=== PATIENT | female | born 1950 | race Caucasian/White ===

== ENCOUNTER 2017-09-27 11:08 | Inpatient (IN) | payer MEDICARE, MEDICAID ==
[~2017-09-27] VITALS: Ht 157.5 cm; Wt 120.7 kg
[~2017-09-27 11:08] MED LIST: ATOR10TA PO; CARV3.1212 PO; CLOP75TA52 PO; DOXE75CA PO; DOXY100C15 PO; GUAI400T66 PO; HYDR28.423 TP; LAMO200T2 PO; LEVO750T26 PO; LISI-167 PO; LORA1TAB PO; METF500T4 PO; NYST60PO TP; OLAN7.5T3 PO; OXYC5TAB3 PO; PRED20TA PO; TIOT18CA INH
[2017-09-27] MEDS ORDERED: SODIUM CHLORIDE FLUSH 10ML SYR IVF ONE (11:30)
[2017-09-27 13:07] LABS: BASOPHILS # (AUTO) 0.02 x10^3/uL (0-0.1); BASOPHILS % (AUTO) 0 % (0-1); EOSINOPHILS # (AUTO) 0.36 x10^3/uL (0-0.4); EOSINOPHILS % (AUTO) 4 % (1-7); LYMPHOCYTES # (AUTO) 1.83 x10^3/uL (1-3.4); LYMPHOCYTES % (AUTO) 18 % (22-44); MD NO; MEAN CORPUSCULAR HEMOGLOBIN 30.3 pg (27.0-34.8); MEAN CORPUSCULAR HGB CONC 33.1 g/dL (32.4-35.8); MEAN CORPUSCULAR VOLUME 91.5 fL (80-100); MEAN PLATELET VOLUME 7.9 fL (7.4-10.4); MONOCYTES # (AUTO) 0.67 x10^3/uL (0.2-0.8); MONOCYTES % (AUTO) 6 % (2-9); NEUTROPHILS # (AUTO) 7.52 x10^3/uL (1.8-6.8); NEUTROPHILS % (AUTO) 72 % (42-75); PLATELET COUNT 340 x10^3/uL (130-400); RED BLOOD COUNT 4.85 x10^6/uL (3.82-5.3); RED CELL DISTRIBUTION WIDTH 13.9 % (9.6-15.2)
[2017-09-27 13:14] LABS: ALBUMIN 3.4 g/dL (3.4-5.0); ANION GAP 10 mmol/L (5-15); CALCIUM 9.3 mg/dL (8.5-10.1); CHLORIDE 102 mmol/L (98-107)
[2017-09-27 13:20] LABS: ALANINE AMINOTRANSFERASE 24 U/L (12-78); ALKALINE PHOSPHATASE 121 U/L (45-117); BILIRUBIN,TOTAL 0.3 mg/dL (0.2-1.0); CREATININE 0.87 mg/dL (0.55-1.02); TOTAL PROTEIN 7.6 g/dL (6.4-8.2); TROPONIN I < 0.015 ng/mL (0.000-0.045)
[2017-09-27 13:21] LABS: INTERNATIONAL NORMALIZED RATIO 0.96 (0.93-1.1)
[2017-09-27] MEDS ORDERED: METF1000 PO (13:38)
[2017-09-27] MEDS ORDERED: HYDR28.423 TP (13:38)
[2017-09-27] MEDS ORDERED: OLAN10TA9 PO (13:38)
[2017-09-27] MEDS ORDERED: SODIUM CHLORIDE FLUSH 10ML SYR IVF PRN (14:00)
[2017-09-27] MEDS ORDERED: SODIUM CHLORIDE 0.9% 1,000 ML IV SCH (14:24)
[2017-09-27] MEDS ORDERED: hydrALAzine 20 MG/ML, 1ML IV PRN (14:30)
[2017-09-27] MEDS ORDERED: ONDANSETRON 2MG/ML, 2ML IVPush PRN (14:30)
[2017-09-27] MEDS ORDERED: HYDROcodone/APAP 5/325 TABLET PO PRN (14:30)
[2017-09-27] MEDS ORDERED: DOCUSATE 100 MG CAPSULE PO PRN (14:30)
[2017-09-27] MEDS ORDERED: ENALAPRILAT 1.25 MG/ML, 2ML IV PRN (14:30)
[2017-09-27] MEDS ORDERED: morphine SULFATE 10 MG/ML, 1ML IVPush PRN (14:30)
[2017-09-27] MEDS ORDERED: LABETALOL 5MG/ML, 20ML IVPush PRN (14:30)
[2017-09-27] MEDS ORDERED: POLYETHYLENE GLYCOL 17 GM PACKET PO PRN (14:30)
[2017-09-27] MEDS ORDERED: ACETAMINOPHEN 325 MG TABLET PO PRN (14:30)
[2017-09-27 14:56] VITALS: BP 138/70
[2017-09-27] MEDS: IPRATROPIUM 0.5 MG/2.5 ML INHA NPPB SCH ×3 (15:00→18:50)
[2017-09-27] MEDS: INSULIN ASPART 100 UNITS/ML, PEN SQ-INSULIN SCH ×2 (15:23→20:30)
[2017-09-27] MEDS: ENOXAPARIN 40 MG/0.4 ML SQ SCH (15:24)
[2017-09-27 15:55] LABS: HEMOGLOBIN A1C 7.7 % (4.2-6.3)
[2017-09-27] MEDS: NYSTATIN TOPICAL POWDER 15GM TP SCH ×2 (17:13→20:30)
[2017-09-27] MEDS: LORazepam 1MG TABLET PO SCH ×2 (17:13→20:29)
[2017-09-27] MEDS ORDERED: ECON15CR TP (17:22)
[2017-09-27] MEDS ORDERED: HALO50CR TP (17:22)
[2017-09-27] MEDS ORDERED: ALBU8.5H8 INH (17:22)
[2017-09-27] MEDS ORDERED: GUAI120S PO (17:22)
[2017-09-27 18:05] LABS: TROPONIN I < 0.015 ng/mL (0.000-0.045)
[2017-09-27] MEDS ORDERED: IPRATROPIUM 0.5 MG/2.5 ML INHA ONE (18:49)
[2017-09-27 20:22] VITALS: BP 116/66
[2017-09-27] MEDS: CARVEDILOL 3.125 MG TABLET PO SCH (20:29)
[2017-09-27] MEDS ORDERED: OLANZAPINE 10 MG TABLET PO SCH (21:00)
[2017-09-27] MEDS ORDERED: ATORVASTATIN 40 MG TABLET PO SCH (21:00)
[2017-09-27] MEDS ORDERED: DOXEPIN 25 MG CAPSULE PO SCH (21:00)
[2017-09-28] MEDS: IPRATROPIUM 0.5 MG/2.5 ML INHA NPPB SCH ×3 (01:20→15:55)
[2017-09-28 02:00] VITALS: BP 100/66
[2017-09-28 06:45] VITALS: BP 98/65
[2017-09-28] MEDS: INSULIN ASPART 100 UNITS/ML, PEN SQ-INSULIN SCH ×3 (07:00→16:00)
[2017-09-28 07:29] LABS: CHOLESTEROL, TOTAL 188 mg/dL (140-239)
[2017-09-28 07:32] LABS: CHOL/HDL RATIO 4.7; HDL CHOL % 21 % (28-40); HDL CHOLESTEROL (DIRECT) 40 mg/dL (40-60); LDL CHOLESTEROL,CALCULATED 96 mg/dL (54-169); LDL/HDL RATIO 2.4 (0.5-3.0); TRIGLYCERIDES 258 mg/dL (50-200); TROPONIN I < 0.015 ng/mL (0.000-0.045); VLDL CHOLESTEROL 52 mg/dL (0-25)
[2017-09-28 08:15] VITALS: BP 124/76
[2017-09-28] MEDS: LORazepam 1MG TABLET PO SCH ×2 (08:26→17:14)
[2017-09-28] MEDS: CARVEDILOL 3.125 MG TABLET PO SCH (08:26)
[2017-09-28] MEDS ORDERED: REGADENOSON 0.4 MG/5 ML SYRINGE ONE (08:53)
[2017-09-28] MEDS ORDERED: LAMOTRIGINE 200 MG TABLET PO SCH (09:00)
[2017-09-28] MEDS ORDERED: LISINOPRIL 5 MG TABLET PO SCH (09:00)
[2017-09-28] MEDS ORDERED: SENNA/DOCUSATE TABLET PO SCH (09:00)
[2017-09-28] MEDS ORDERED: CLOPIDOGREL 75 MG TABLET PO SCH (09:00)
[2017-09-28] MEDS: NYSTATIN TOPICAL POWDER 15GM TP SCH ×2 (12:18→17:14)
[2017-09-28 12:55] VITALS: BP 114/74
[2017-09-28] MEDS: ENOXAPARIN 40 MG/0.4 ML SQ SCH (14:30)
[2017-09-28] MEDS ORDERED: FENO145T32 PO (14:42)
[2017-09-28] MEDS ORDERED: MINERA CRM, 60GM TP SCH (21:00)
== END 2017-09-28 18:16 | disposition home or self-care (01) | DRG 313 ==
LOC: ED 11:29 → EDIP 13:55 → 5SO 14:43
PROVIDERS: ADMIT Family Medicine; ATTEND Family Medicine
DX: R07.89 Other chest pain (principal); I25.110 Atherosclerotic heart disease of native coronary artery with unstable angina pectoris; J96.10 Chronic respiratory failure, unspecified whether with hypoxia or hypercapnia; E11.65 Type 2 diabetes mellitus with hyperglycemia; E66.01 Morbid (severe) obesity due to excess calories; Z99.81 Dependence on supplemental oxygen; Z68.42 Body mass index [BMI] 45.0-49.9, adult; J44.9 Chronic obstructive pulmonary disease, unspecified; E78.1 Pure hyperglyceridemia; E78.5 Hyperlipidemia, unspecified; F31.9 Bipolar disorder, unspecified; F41.1 Generalized anxiety disorder; I10 Essential (primary) hypertension; I25.2 Old myocardial infarction; Z80.8 Family history of malignant neoplasm of other organs or systems; Z82.49 Family history of ischemic heart disease and other diseases of the circulatory system; Z86.73 Personal history of transient ischemic attack (TIA), and cerebral infarction without residual deficits; Z95.5 Presence of coronary angioplasty implant and graft; Z90.49 Acquired absence of other specified parts of digestive tract; Z88.1 Allergy status to other antibiotic agents; Z88.0 Allergy status to penicillin; Z88.8 Allergy status to other drugs, medicaments and biological substances
CPT/HCPCS: 36415; 71045; 78452; 80053; 80061; 82947; 82962; 83036; 84484; 85025; 85610; 85730; 93005; 93017; 94640; 99285; J1650; J1815; J2785; J7644; A9502; C9898; J7030

== ENCOUNTER 2018-07-25 19:19 | Observation (INO) | payer MEDICARE, MEDICAID ==
[~2018-07-25] VITALS: Ht 157.5 cm; Wt 119.3 kg
[~2018-07-25 19:19] MED LIST changes: +ALBU8.5H8 INH; +ECON15CR TP; +FENO145T32 PO; +GUAI120S PO; +HALO50CR TP; +METF1000 PO; +METF500T17 PO; -METF500T4 PO; +OLAN10TA9 PO
[2018-07-25] MEDS ORDERED: SODIUM CHLORIDE FLUSH 10ML SYR IVF ONE (19:30)
[2018-07-25 19:56] LABS: ALBUMIN 3.1 g/dL (3.4-5.0); ANION GAP 8 mmol/L (5-15); CALCIUM 8.9 mg/dL (8.5-10.1); CHLORIDE 101 mmol/L (98-107); INTERNATIONAL NORMALIZED RATIO 0.95 (0.93-1.1); PROTHROMBIN TIME 9.9 Seconds (9.6-11.5)
[2018-07-25 19:58] LABS: BASOPHILS # (AUTO) 0.07 x10^3/uL (0-0.1); BASOPHILS % (AUTO) 1 % (0-1); EOSINOPHILS # (AUTO) 0.49 x10^3/uL (0-0.4); EOSINOPHILS % (AUTO) 6 % (1-7); LYMPHOCYTES # (AUTO) 2.39 x10^3/uL (1-3.4); LYMPHOCYTES % (AUTO) 29 % (22-44); MD NO; MEAN CORPUSCULAR HEMOGLOBIN 30.8 pg (27.0-34.8); MEAN CORPUSCULAR HGB CONC 33.6 g/dL (32.4-35.8); MEAN CORPUSCULAR VOLUME 91.8 fL (80-100); MEAN PLATELET VOLUME 7.9 fL (7.4-10.4); MONOCYTES # (AUTO) 0.69 x10^3/uL (0.2-0.8); MONOCYTES % (AUTO) 8 % (2-9); NEUTROPHILS # (AUTO) 4.57 x10^3/uL (1.8-6.8); NEUTROPHILS % (AUTO) 56 % (42-75); PLATELET COUNT 297 x10^3/uL (130-400); RED BLOOD COUNT 4.72 x10^6/uL (3.82-5.3); RED CELL DISTRIBUTION WIDTH 13.3 % (9.6-15.2)
[2018-07-25] MEDS ORDERED: PLEASE ENTER HEIGHT AND WEIGHT MC SCH (20:00)
[2018-07-25 20:02] LABS: ALANINE AMINOTRANSFERASE 25 U/L (12-78); ALKALINE PHOSPHATASE 122 U/L (45-117); BILIRUBIN,TOTAL 0.3 mg/dL (0.2-1.0); CREATININE 1.01 mg/dL (0.55-1.02); TOTAL PROTEIN 7.4 g/dL (6.4-8.2); TROPONIN I < 0.015 ng/mL (0.000-0.045)
[2018-07-25] MEDS ORDERED: LAMO200T2 PO (21:35)
[2018-07-25] MEDS ORDERED: HALO15CR3 TD (21:35)
[2018-07-25] MEDS ORDERED: IPRA4AER INH (21:35)
[2018-07-25] MEDS ORDERED: ALBU18HF INH (21:35)
[2018-07-25] MEDS ORDERED: METF1000 PO (21:35)
[2018-07-25] MEDS ORDERED: HYDR28OI3 TD (21:35)
[2018-07-25] MEDS ORDERED: GUAIFENESIN/DM 100-10MG, 5ML UDC PO PRN (22:00)
[2018-07-25 22:15] VITALS: BP 120/74
[2018-07-25] MEDS ORDERED: DOCUSATE 100 MG CAPSULE PO PRN (22:30)
[2018-07-25] MEDS ORDERED: ONDANSETRON ODT 4 MG PO PRN (22:30)
[2018-07-25] MEDS: ALBUTEROL/IPRATROPIUM 2.5MG/0.5MG, 3 ML HHN SCH (22:30)
[2018-07-25] MEDS ORDERED: ACETAMINOPHEN 325 MG TABLET PO PRN (22:30)
[2018-07-25] MEDS ORDERED: ALBUTEROL SULFATE 2.5 MG/3 ML HHN PRN (22:30)
[2018-07-25] MEDS ORDERED: hydrALAzine 20 MG/ML, 1ML IVPush PRN (22:30)
[2018-07-25] MEDS: INSULIN LISPRO 100 UNITS/ML, PEN SQ-INSULIN SCH (23:34)
[2018-07-25] MEDS: ENOXAPARIN 40 MG/0.4 ML SQ SCH (23:34)
[2018-07-26 01:44] VITALS: BP 109/56
[2018-07-26 01:58] LABS: TROPONIN I < 0.015 ng/mL (0.000-0.045)
[2018-07-26] MEDS: ALBUTEROL/IPRATROPIUM 2.5MG/0.5MG, 3 ML HHN SCH (04:30)
[2018-07-26 05:29] LABS: TROPONIN I < 0.015 ng/mL (0.000-0.045)
[2018-07-26 07:39] VITALS: BP 106/69
[2018-07-26] MEDS: INSULIN LISPRO 100 UNITS/ML, PEN SQ-INSULIN SCH ×4 (08:53→20:37)
[2018-07-26] MEDS: LISINOPRIL 10 MG TABLET PO SCH (08:54)
[2018-07-26] MEDS: HALOBETASOL PROPIONATE HOMETD SCH ×2 (08:54→21:00)
[2018-07-26] MEDS: CLOPIDOGREL 75 MG TABLET PO SCH (08:54)
[2018-07-26] MEDS: LAMOTRIGINE 200 MG TABLET PO SCH (08:54)
[2018-07-26] MEDS ORDERED: metFORMIN 500 MG TABLET PO SCH (09:00)
[2018-07-26 12:36] LABS: HEMOGLOBIN A1C 9.9 % (4.2-6.3)
[2018-07-26 12:51] VITALS: BP 110/71
[2018-07-26 14:18] LABS: CHOL/HDL RATIO 5.2; LDL/HDL RATIO 2.3 (0.5-3.0)
[2018-07-26] MEDS: ALBUTEROL/IPRATROPIUM 2.5MG/0.5MG, 3 ML NPPB SCH ×2 (14:43→20:42)
[2018-07-26] MEDS: LORazepam 1MG TABLET PO PRN (14:55)
[2018-07-26 19:03] VITALS: BP 142/67
[2018-07-26 21:21] VITALS: BP 112/72
[2018-07-26] MEDS: ENOXAPARIN 40 MG/0.4 ML SQ SCH (21:23)
[2018-07-26] MEDS: CARVEDILOL 3.125 MG TABLET PO SCH (21:23)
[2018-07-26] MEDS: DOXEPIN 25 MG CAPSULE PO SCH (21:23)
[2018-07-26] MEDS: ATORVASTATIN 40 MG TABLET PO SCH (21:23)
[2018-07-26] MEDS: OLANZAPINE 10 MG TABLET PO SCH (21:23)
[2018-07-26] MEDS: SODIUM CHLORIDE FLUSH 10ML SYR IVF SCH (21:24)
[2018-07-27 00:18] VITALS: BP 99/65
[2018-07-27] MEDS: ALBUTEROL/IPRATROPIUM 2.5MG/0.5MG, 3 ML NPPB SCH ×4 (02:46→21:03)
[2018-07-27 06:20] LABS: CHOL/HDL RATIO 5.5; LDL/HDL RATIO 2.6 (0.5-3.0)
[2018-07-27] MEDS: HALOBETASOL PROPIONATE HOMETD SCH ×2 (07:42→20:37)
[2018-07-27] MEDS: LISINOPRIL 10 MG TABLET PO SCH (07:56)
[2018-07-27] MEDS: LAMOTRIGINE 200 MG TABLET PO SCH (07:56)
[2018-07-27] MEDS: CARVEDILOL 3.125 MG TABLET PO SCH ×2 (07:56→20:38)
[2018-07-27] MEDS: CLOPIDOGREL 75 MG TABLET PO SCH (07:56)
[2018-07-27] MEDS: SODIUM CHLORIDE FLUSH 10ML SYR IVF SCH ×2 (07:59→20:37)
[2018-07-27] MEDS: INSULIN LISPRO 100 UNITS/ML, PEN SQ-INSULIN SCH ×4 (08:01→20:51)
[2018-07-27 08:19] VITALS: BP 107/64
[2018-07-27] MEDS ORDERED: REGADENOSON 0.4 MG/5 ML SYRINGE ONE (08:29)
[2018-07-27] MEDS: LORazepam 1MG TABLET PO PRN ×2 (11:38→19:12)
[2018-07-27 14:00] VITALS: BP 142/73
[2018-07-27 18:45] VITALS: BP 137/83
[2018-07-27 20:35] VITALS: BP 108/70
[2018-07-27] MEDS: OLANZAPINE 10 MG TABLET PO SCH (20:38)
[2018-07-27] MEDS: ATORVASTATIN 40 MG TABLET PO SCH (20:38)
[2018-07-27] MEDS: DOXEPIN 25 MG CAPSULE PO SCH (20:38)
[2018-07-27] MEDS ORDERED: INSULIN GLARGINE 100 UNITS/ML, PEN SQ-INSULIN SCH (21:00)
[2018-07-27] MEDS: ENOXAPARIN 40 MG/0.4 ML SQ SCH (23:02)
[2018-07-28] MEDS: ALBUTEROL/IPRATROPIUM 2.5MG/0.5MG, 3 ML NPPB SCH ×2 (03:00→09:00)
[2018-07-28 04:00] VITALS: BP 109/69
[2018-07-28 07:30] VITALS: BP 109/70
[2018-07-28] MEDS: CARVEDILOL 3.125 MG TABLET PO SCH (07:57)
[2018-07-28] MEDS: CLOPIDOGREL 75 MG TABLET PO SCH (07:57)
[2018-07-28] MEDS: LORazepam 1MG TABLET PO PRN ×2 (07:57→12:42)
[2018-07-28] MEDS: LISINOPRIL 10 MG TABLET PO SCH (07:57)
[2018-07-28] MEDS: LAMOTRIGINE 200 MG TABLET PO SCH (07:57)
[2018-07-28] MEDS: HALOBETASOL PROPIONATE HOMETD SCH (07:58)
[2018-07-28] MEDS: SODIUM CHLORIDE FLUSH 10ML SYR IVF SCH (07:58)
[2018-07-28] MEDS: INSULIN LISPRO 100 UNITS/ML, PEN SQ-INSULIN SCH ×3 (08:20→16:42)
[2018-07-28] MEDS ORDERED: ALBUTEROL SULFATE 2.5 MG/3 ML NPPB SCH (11:00)
[2018-07-28 12:50] VITALS: BP 118/78
[2018-07-28] MEDS ORDERED: ALBUTEROL SULFATE 2.5 MG/3 ML NPPB PRN (14:00)
[2018-07-28] MEDS ORDERED: GLIM2TAB2 PO (14:31)
[2018-07-28] MEDS ORDERED: BUDESONIDE 0.5 MG/2 ML INHA INH SCH (20:00)
[2018-07-29] MEDS ORDERED: BUDESONIDE 0.5 MG/2 ML INHA INH SCH (09:00)
== END 2018-07-28 18:52 | disposition home or self-care (01) ==
LOC: ED 20:14 → INTOOBSV 21:17 → EDIP 21:17 → 5SO 22:09
PROVIDERS: ADMIT Hospitalist; ATTEND Hospitalist
DX: I25.110 Atherosclerotic heart disease of native coronary artery with unstable angina pectoris (principal); E11.65 Type 2 diabetes mellitus with hyperglycemia; E11.69 Type 2 diabetes mellitus with other specified complication; E66.01 Morbid (severe) obesity due to excess calories; E78.1 Pure hyperglyceridemia; E78.5 Hyperlipidemia, unspecified; I10 Essential (primary) hypertension; F31.9 Bipolar disorder, unspecified; I25.2 Old myocardial infarction; I87.2 Venous insufficiency (chronic) (peripheral); J44.9 Chronic obstructive pulmonary disease, unspecified; L40.9 Psoriasis, unspecified; J96.20 Acute and chronic respiratory failure, unspecified whether with hypoxia or hypercapnia; Z80.8 Family history of malignant neoplasm of other organs or systems; Z82.3 Family history of stroke; Z86.73 Personal history of transient ischemic attack (TIA), and cerebral infarction without residual deficits; Z87.891 Personal history of nicotine dependence; Z88.6 Allergy status to analgesic agent; Z95.5 Presence of coronary angioplasty implant and graft; Z99.81 Dependence on supplemental oxygen; Z88.8 Allergy status to other drugs, medicaments and biological substances; Z23 Encounter for immunization
CPT/HCPCS: 36415; 71045; 78452; 80053; 80061; 82962; 83036; 83880; 84484; 85025; 85610; 85730; 90471; 90656; 93005; 93017; 93306; 93970; 94640; 96372; 99285; A9502; C9898; G0378; J1650; J1815; J2785; J7620

== ENCOUNTER 2019-02-02 18:20 | Inpatient (IN) | payer MEDICARE, MEDICAID ==
[~2019-02-02] VITALS: Ht 157.5 cm; Wt 127.0 kg
[~2019-02-02 18:20] MED LIST changes: +ALBU18HF INH; +GLIM2TAB2 PO; +HALO15CR3 TD; +HYDR28OI3 TD; +IPRA4AER INH
--- NOTE | 2019-02-02 18:41 | NUR ---
BIB BY [facility] FOR SOB/SUBSTERANAL CHEST PAIN X 2 DAYS. HX OF "SILENT IL" PAIN UNRELIEVED BY NITRO X2 TEMP OF 103, HR 95 ALLERGY TO ASA EKG OBTAINED AT 1830, FSBS 144 PLACED ON ANIMAL CARE ATTENDANT AND PIV OBTAINED
[2019-02-02] MEDS ORDERED: ACETAMINOPHEN 500 MG TABLET ONE (18:53)
[2019-02-02] MEDS ORDERED: ACETAMINOPHEN 500 MG TABLET PO ONE (19:00)
--- NOTE | 2019-02-02 19:01 | NUR ---
RIGHT AC 18 PIV STARTED W/ US-LABS INCLUDING LACTATE/CULTURE OBTAINED LAB AT BEDSIDE OBTAINING 2ND SET OF CULTURES MEDICATED W/ TYLENOL PER [facility] FOR FEVER VITALS UNCHANGED ON CONSTRUCTION PERSON-WILL CONTINUE TO CLOSELY MONITOR
--- NOTE | 2019-02-02 19:15 | NUR ---
WITH ASSESSMENT NOTED LEFT LEFT SWELLING-CALF TENDER TO TOUCH-PROVIDER AWARE RASH NOTED BENEATH BILATERAL BREAST-PATIENT TREATING AT HOME W/ SELENA BRAMBILA
[2019-02-02 19:18] LABS: MEAN CORPUSCULAR HEMOGLOBIN 30.4 pg (27.0-34.8); MEAN CORPUSCULAR HGB CONC 32.6 g/dL (32.4-35.8); MEAN CORPUSCULAR VOLUME 93.4 fL (80-100); MEAN PLATELET VOLUME 7.7 fL (7.4-10.4); PLATELET COUNT 360 x10^3/uL (130-400); RED BLOOD COUNT 4.99 x10^6/uL (3.82-5.3); RED CELL DISTRIBUTION WIDTH 14.5 % (9.6-15.2)
[2019-02-02] MEDS ORDERED: CLOT15CR5 TP (19:25)
[2019-02-02] MEDS ORDERED: NITR0.6T4 SL (19:25)
[2019-02-02 19:28] LABS: INTERNATIONAL NORMALIZED RATIO 0.94 (0.93-1.1); PROTHROMBIN TIME 9.9 Seconds (9.6-11.5)
[2019-02-02 19:31] LABS: ALANINE AMINOTRANSFERASE 18 U/L (12-78); ALBUMIN 3.5 g/dL (3.4-5.0); ANION GAP 7 mmol/L (5-15); CALCIUM 9.4 mg/dL (8.5-10.1); CHLORIDE 102 mmol/L (98-107); CREATININE 1.03 mg/dL (0.55-1.02)
--- NOTE | 2019-02-02 19:32 | NUR ---
PATIENT HELPED TO BEDSIDE COMMODE-VOIDED 300ML-SAMPLE SENT LARGE PATCHY RASH NOTED TO BILATERAL BACK-PATIENT REPORTS HX OF PSORIASIS
[2019-02-02 19:36] LABS: ALKALINE PHOSPHATASE 133 U/L (45-117); BILIRUBIN,TOTAL 0.3 mg/dL (0.2-1.0); TOTAL PROTEIN 8.3 g/dL (6.4-8.2); TROPONIN I < 0.015 ng/mL (0.000-0.045)
[2019-02-02 19:40] LABS: MICROSCOPIC AUTO
[2019-02-02 19:43] LABS: CULTURE INDICATED? YES
--- NOTE | 2019-02-02 19:57 | NUR ---
PHARMACY CALLED- TO HAVE ABX SENT SOON VERIFIED
[2019-02-02] MEDS ORDERED: AZTREONAM 2 GM in SODIUM CHLORIDE 0.9% 100 ML IVPB ONE (20:00)
[2019-02-02] MEDS ORDERED: ALBUTEROL/IPRATROPIUM 2.5MG/0.5MG, 3 ML NPPB ONE (20:00)
[2019-02-02] MEDS ORDERED: VANCOMYCIN PER PHARMACY MC ONE (20:00)
[2019-02-02] MEDS ORDERED: VANCOMYCIN 2,000 MG in SODIUM CHLORIDE 0.9% 500 ML IV ONE (20:00)
[2019-02-02 20:01] LABS: BASOPHILS # (AUTO) 0.02 x10^3/uL (0-0.1); BASOPHILS % (AUTO) 0 % (0-1); EOSINOPHILS # (AUTO) 0.35 x10^3/uL (0-0.4); EOSINOPHILS % (AUTO) 2 % (1-7); LYMPHOCYTES # (AUTO) 0.86 x10^3/uL (1-3.4); LYMPHOCYTES % (AUTO) 5 % (22-44); MONOCYTES # (AUTO) 0.53 x10^3/uL (0.2-0.8); MONOCYTES % (AUTO) 3 % (2-9); NEUTROPHILS # (AUTO) 15.83 x10^3/uL (1.8-6.8); NEUTROPHILS % (AUTO) 90 % (42-75)
[2019-02-02 20:02] LABS: MD SCAN
[2019-02-02] MEDS ORDERED: ALBUTEROL/IPRATROPIUM 2.5MG/0.5MG, 3 ML ONE (20:04)
--- NOTE | 2019-02-02 20:21 | NUR ---
ABX INITIATED PER [facility] TEMP TO 99.7 RT TO BEDSIDE- PATIENT REPORT NEB TREATMENT "HELPED ALOT", NO W/ NOTICEABLE DECREASE IN WOB/ANXIETY CLARIFIED PERMISSION FOR PO FLUIDS/IF IV FLUIDS NECCESSARY W/ PROVIDER
--- NOTE | 2019-02-02 20:26 | NUR ---
GIVEN JUICE/STRING CHEESE AFTER CLARIFICATION W/ PROVIDER NO IV AT THIS TIME PER PROVIDER
--- NOTE | 2019-02-02 20:36 | NUR ---
TO CT SCAN AZTREONAM COMPLETE-NO REACTION NOTED TOLERATED JUICE/CRACKERS/STRING CHEESE VITALS REMAIN UNCHANGED
--- NOTE | 2019-02-02 21:11 | NUR ---
VANCOMYCIN STARTED AFTER CLARIFICATION W/ PHARMACY NO INTERACTION W/ POSTED ALLERGIES. PATIENT PROVIDED W/ MEAL TRAY. VITALS REMAIN UNCHANGED. HELPED UP TO COMMODE TO VOID-350ML. UPDATED ON POC. CALL MATA IN HAND/SIDE RAILS UP.
--- NOTE | 2019-02-02 21:18 | NUR ---
HOSPITAL BED ORDERED FOR PATIENT
--- NOTE | 2019-02-02 21:25 | NUR ---
REPORT TO SAMANTHA TOBIN
--- NOTE | 2019-02-02 21:25 | NUR ---
received report from MAHAD Marie.
[2019-02-02] MEDS ORDERED: GLUCAGON 1 MG IM PRN (22:00)
[2019-02-02] MEDS ORDERED: LABETALOL 5MG/ML, 20ML IVPush PRN (22:00)
[2019-02-02] MEDS ORDERED: ONDANSETRON 2MG/ML, 2ML IVPush PRN (22:00)
[2019-02-02] MEDS ORDERED: CEFTRIAXONE 1,000 MG in SODIUM CHLORIDE 0.9% 50 ML IVPB SCH (22:00)
[2019-02-02] MEDS ORDERED: morphine SULFATE 10 MG/ML, 1ML IVPush PRN (22:00)
[2019-02-02] MEDS ORDERED: POLYETHYLENE GLYCOL 17 GM PACKET PO PRN (22:00)
[2019-02-02] MEDS ORDERED: NITROGLYCERIN 0.4 MG BOTTLE (25 TABS) SL PRN (22:00)
[2019-02-02] MEDS ORDERED: DEXTROSE 4 GM TAB.CHEW PO PRN (22:00)
[2019-02-02] MEDS ORDERED: DEXTROSE 50%, 50ML SYRINGE IVPush PRN (22:00)
[2019-02-02] MEDS ORDERED: DOXYCYCLINE 100 MG in DEXTROSE 5% 250 ML IV SCH (22:00)
[2019-02-02] MEDS ORDERED: ENALAPRILAT 1.25 MG/ML, 2ML IVPush PRN (22:00)
[2019-02-02] MEDS ORDERED: ACETAMINOPHEN 325 MG TABLET PO PRN (22:00)
--- NOTE | 2019-02-02 22:00 | NUR ---
patient assisted to use bedside commode. able to ambulate and transfer by herself.
[2019-02-02 22:27] VITALS: BP 129/64
[2019-02-02] MEDS: ENOXAPARIN 40 MG/0.4 ML SQ SCH (22:51)
[2019-02-02] MEDS ORDERED: ALBUTEROL/IPRATROPIUM 2.5MG/0.5MG, 3 ML NPPB PRN (23:30)
[2019-02-03] MEDS ORDERED: LORazepam 0.5MG TABLET PO ONE (01:00)
[2019-02-03 02:02] LABS: TROPONIN I < 0.015 ng/mL (0.000-0.045)
[2019-02-03 02:07] LABS: THYROID STIMULATING HORMONE 0.622 mIU/L (0.358-3.740)
[2019-02-03 02:43] VITALS: BP 104/66
[2019-02-03] MEDS ORDERED: OMNIPAQUE 350 MG/ML, 100ML BOTTLE ONE (03:12)
[2019-02-03] MEDS: INSULIN LISPRO 100 UNITS/ML, PEN SQ-INSULIN SCH ×4 (07:00→21:25)
[2019-02-03 07:03] VITALS: BP 106/66
[2019-02-03 07:26] LABS: ANION GAP 8 mmol/L (5-15); CALCIUM 8.7 mg/dL (8.5-10.1); CHLORIDE 102 mmol/L (98-107)
[2019-02-03 07:31] LABS: MEAN CORPUSCULAR HEMOGLOBIN 29.2 pg (27.0-34.8); MEAN CORPUSCULAR HGB CONC 31.4 g/dL (32.4-35.8); MEAN CORPUSCULAR VOLUME 93.1 fL (80-100); MEAN PLATELET VOLUME 7.3 fL (7.4-10.4); PLATELET COUNT 318 x10^3/uL (130-400); RED BLOOD COUNT 4.66 x10^6/uL (3.82-5.3); RED CELL DISTRIBUTION WIDTH 14.8 % (9.6-15.2)
[2019-02-03 07:33] LABS: CHOL/HDL RATIO 3.3; CHOLESTEROL, TOTAL 146 mg/dL (140-239); CREATININE 0.96 mg/dL (0.55-1.02); HDL CHOL % 30 % (28-40); HDL CHOLESTEROL (DIRECT) 44 mg/dL (40-60); LDL CHOLESTEROL,CALCULATED 77 mg/dL (54-169); LDL/HDL RATIO 1.8 (0.5-3.0); TRIGLYCERIDES 124 mg/dL (50-200); TROPONIN I < 0.015 ng/mL (0.000-0.045); VLDL CHOLESTEROL 25 mg/dL (0-25)
[2019-02-03 08:03] LABS: MD YES
[2019-02-03 08:04] LABS: BAND#(MANUAL) 1.42 x10^3/uL; BANDS%(MANUAL) 6 % (0-7); MONOS#(MANUAL) 0.94 x10^3/uL (0.3-2.7); MONOS% (MANUAL) 4 % (2-9); SEG#(MANUAL) 21.24 x10^3/uL (1.8-6.8); SEGS% (MANUAL) 90 % (42-75)
[2019-02-03 08:05] LABS: <PLATELET ESTIMATE> ADEQUATE; <PLT MORPHOLOGY> NORMAL PLT MORPH; POLYCHROMASIA 1+
[2019-02-03] MEDS: SODIUM CHLORIDE FLUSH 10ML SYR IVF SCH ×2 (08:33→21:00)
[2019-02-03] MEDS: LORazepam 1MG TABLET PO SCH ×3 (08:33→21:24)
[2019-02-03] MEDS: LISINOPRIL 5 MG TABLET PO SCH (08:33)
[2019-02-03] MEDS: LAMOTRIGINE 200 MG TABLET PO SCH (08:33)
[2019-02-03] MEDS: NYSTATIN TOPICAL POWDER 15GM TP SCH ×3 (09:00→21:26)
[2019-02-03] MEDS ORDERED: CLOPIDOGREL 75 MG TABLET PO SCH (09:00)
[2019-02-03] MEDS ORDERED: CARVEDILOL 3.125 MG TABLET PO SCH (09:00)
[2019-02-03] MEDS: ALBUTEROL/IPRATROPIUM 2.5MG/0.5MG, 3 ML NPPB SCH ×3 (09:00→18:24)
[2019-02-03] MEDS ORDERED: CLOTRIMAZOLE CRM 1%, 15GM TP SCH (09:00)
[2019-02-03] MEDS ORDERED: VANCOMYCIN PER PHARMACY MC PRN (11:30)
[2019-02-03] MEDS ORDERED: PHARMACOKINETIC MONITORING MC PRN (11:30)
[2019-02-03] MEDS: CEFTRIAXONE PMX 2GM/50ML 50 ML IV SCH (13:19)
[2019-02-03 14:18] VITALS: BP 102/50
[2019-02-03] MEDS ORDERED: THIAMINE 100MG TABLET PO ONE (16:30)
[2019-02-03 18:42] VITALS: BP 97/64
[2019-02-03 19:00] LABS: RAPID INFLUENZA A Negative (Negative); RAPID INFLUENZA B Negative (Negative)
[2019-02-03] MEDS ORDERED: ATORVASTATIN 40 MG TABLET PO SCH (21:00)
[2019-02-03 21:12] VITALS: BP 95/62
[2019-02-03] MEDS: OLANZAPINE 10 MG TABLET PO SCH (21:24)
[2019-02-03] MEDS: VANCOMYCIN 2,000 MG in SODIUM CHLORIDE 0.9% 500 ML IV SCH (21:25)
[2019-02-03] MEDS: DOXEPIN 25 MG CAPSULE PO SCH (21:25)
[2019-02-03] MEDS: ENOXAPARIN 40 MG/0.4 ML SQ SCH (22:50)
[2019-02-03 22:53] VITALS: BP 95/59
[2019-02-04 00:56] VITALS: BP 103/68
[2019-02-04 05:37] LABS: MEAN CORPUSCULAR HGB CONC 31.3 g/dL (32.4-35.8); MEAN CORPUSCULAR VOLUME 92.8 fL (80-100); MEAN PLATELET VOLUME 7.2 fL (7.4-10.4); PLATELET COUNT 262 x10^3/uL (130-400); RED BLOOD COUNT 4.42 x10^6/uL (3.82-5.3); RED CELL DISTRIBUTION WIDTH 14.8 % (9.6-15.2)
[2019-02-04 05:57] LABS: ALANINE AMINOTRANSFERASE 12 U/L (12-78); ALBUMIN 2.6 g/dL (3.4-5.0); ANION GAP 6 mmol/L (5-15); CALCIUM 8.5 mg/dL (8.5-10.1); CHLORIDE 104 mmol/L (98-107); CREATININE 0.95 mg/dL (0.55-1.02)
[2019-02-04 06:00] LABS: ALKALINE PHOSPHATASE 106 U/L (45-117); BILIRUBIN,TOTAL 0.5 mg/dL (0.2-1.0); TOTAL PROTEIN 6.9 g/dL (6.4-8.2)
[2019-02-04 06:11] LABS: BASOPHILS # (AUTO) 0.03 x10^3/uL (0-0.1); BASOPHILS % (AUTO) 0 % (0-1); EOSINOPHILS # (AUTO) 0.08 x10^3/uL (0-0.4); EOSINOPHILS % (AUTO) 1 % (1-7); LYMPHOCYTES # (AUTO) 1.32 x10^3/uL (1-3.4); LYMPHOCYTES % (AUTO) 9 % (22-44); MD SCAN; MONOCYTES # (AUTO) 0.92 x10^3/uL (0.2-0.8); MONOCYTES % (AUTO) 6 % (2-9); NEUTROPHILS % (AUTO) 84 % (42-75)
[2019-02-04 07:00] VITALS: BP 108/70
[2019-02-04] MEDS: INSULIN LISPRO 100 UNITS/ML, PEN SQ-INSULIN SCH ×4 (07:14→21:13)
[2019-02-04] MEDS: ALBUTEROL/IPRATROPIUM 2.5MG/0.5MG, 3 ML NPPB SCH ×3 (09:55→19:27)
[2019-02-04] MEDS: LORazepam 1MG TABLET PO SCH ×3 (10:47→21:11)
[2019-02-04] MEDS: CEFTRIAXONE PMX 2GM/50ML 50 ML IV SCH (10:47)
[2019-02-04] MEDS: LAMOTRIGINE 200 MG TABLET PO SCH (10:47)
[2019-02-04] MEDS: NYSTATIN TOPICAL POWDER 15GM TP SCH ×3 (10:47→21:13)
[2019-02-04] MEDS: LISINOPRIL 5 MG TABLET PO SCH (10:47)
[2019-02-04] MEDS: SODIUM CHLORIDE FLUSH 10ML SYR IVF SCH ×2 (10:48→21:12)
[2019-02-04 14:00] VITALS: BP 124/72
[2019-02-04 19:19] VITALS: BP 99/64
[2019-02-04] MEDS: DOXEPIN 25 MG CAPSULE PO SCH (21:12)
[2019-02-04] MEDS: OLANZAPINE 10 MG TABLET PO SCH (21:12)
[2019-02-04] MEDS: ENOXAPARIN 40 MG/0.4 ML SQ SCH (22:28)
[2019-02-04] MEDS: VANCOMYCIN 2,000 MG in SODIUM CHLORIDE 0.9% 500 ML IV SCH (22:28)
[2019-02-05 02:50] VITALS: BP 105/63
[2019-02-05 05:24] LABS: BASOPHILS % (AUTO) 0 % (0-1); EOSINOPHILS # (AUTO) 0.28 x10^3/uL (0-0.4); EOSINOPHILS % (AUTO) 3 % (1-7); LYMPHOCYTES # (AUTO) 1.03 x10^3/uL (1-3.4); LYMPHOCYTES % (AUTO) 9 % (22-44); MD NO; MEAN CORPUSCULAR HGB CONC 32.1 g/dL (32.4-35.8); MEAN CORPUSCULAR VOLUME 93.4 fL (80-100); MEAN PLATELET VOLUME 7.6 fL (7.4-10.4); MONOCYTES # (AUTO) 0.94 x10^3/uL (0.2-0.8); MONOCYTES % (AUTO) 8 % (2-9); NEUTROPHILS % (AUTO) 80 % (42-75); PLATELET COUNT 271 x10^3/uL (130-400); RED BLOOD COUNT 4.21 x10^6/uL (3.82-5.3); RED CELL DISTRIBUTION WIDTH 14.8 % (9.6-15.2)
[2019-02-05 05:36] LABS: CHLORIDE 104 mmol/L (98-107)
[2019-02-05 05:49] LABS: ALANINE AMINOTRANSFERASE 12 U/L (12-78); ALBUMIN 2.5 g/dL (3.4-5.0); ALKALINE PHOSPHATASE 110 U/L (45-117); ANION GAP 4 mmol/L (5-15); BILIRUBIN,TOTAL 0.3 mg/dL (0.2-1.0); CALCIUM 8.6 mg/dL (8.5-10.1); CREATININE 0.82 mg/dL (0.55-1.02); TOTAL PROTEIN 7.1 g/dL (6.4-8.2)
[2019-02-05 08:30] VITALS: BP 112/74
[2019-02-05] MEDS: INSULIN LISPRO 100 UNITS/ML, PEN SQ-INSULIN SCH ×6 (08:38→21:17)
[2019-02-05] MEDS: LAMOTRIGINE 200 MG TABLET PO SCH (08:39)
[2019-02-05] MEDS: LISINOPRIL 5 MG TABLET PO SCH (08:39)
[2019-02-05] MEDS: SODIUM CHLORIDE FLUSH 10ML SYR IVF SCH ×2 (08:39→21:16)
[2019-02-05] MEDS: LORazepam 1MG TABLET PO SCH ×3 (08:39→21:17)
[2019-02-05] MEDS: NYSTATIN TOPICAL POWDER 15GM TP SCH ×3 (09:00→21:17)
[2019-02-05] MEDS: ALBUTEROL/IPRATROPIUM 2.5MG/0.5MG, 3 ML NPPB SCH ×3 (09:25→19:22)
[2019-02-05] MEDS: CEFTRIAXONE PMX 2GM/50ML 50 ML IV SCH (10:55)
[2019-02-05 12:06] VITALS: BP 104/65
[2019-02-05 18:27] VITALS: BP 108/69
[2019-02-05] MEDS: OLANZAPINE 10 MG TABLET PO SCH (21:16)
[2019-02-05] MEDS: DOXEPIN 25 MG CAPSULE PO SCH (21:17)
[2019-02-05] MEDS: VANCOMYCIN 2,000 MG in SODIUM CHLORIDE 0.9% 500 ML IV SCH (22:02)
[2019-02-05] MEDS: ENOXAPARIN 40 MG/0.4 ML SQ SCH (22:02)
[2019-02-06 00:50] VITALS: BP 109/67
[2019-02-06 05:36] LABS: BASOPHILS # (AUTO) 0.02 x10^3/uL (0-0.1); BASOPHILS % (AUTO) 0 % (0-1); EOSINOPHILS % (AUTO) 5 % (1-7); LYMPHOCYTES # (AUTO) 1.06 x10^3/uL (1-3.4); LYMPHOCYTES % (AUTO) 10 % (22-44); MD NO; MEAN CORPUSCULAR HEMOGLOBIN 29.9 pg (27.0-34.8); MEAN CORPUSCULAR HGB CONC 31.8 g/dL (32.4-35.8); MEAN CORPUSCULAR VOLUME 94.1 fL (80-100); MEAN PLATELET VOLUME 7.5 fL (7.4-10.4); MONOCYTES # (AUTO) 0.81 x10^3/uL (0.2-0.8); MONOCYTES % (AUTO) 8 % (2-9); NEUTROPHILS # (AUTO) 7.77 x10^3/uL (1.8-6.8); NEUTROPHILS % (AUTO) 76 % (42-75); PLATELET COUNT 314 x10^3/uL (130-400); RED BLOOD COUNT 4.11 x10^6/uL (3.82-5.3); RED CELL DISTRIBUTION WIDTH 14.7 % (9.6-15.2)
[2019-02-06 05:48] LABS: CHLORIDE 106 mmol/L (98-107)
[2019-02-06 06:00] LABS: ALANINE AMINOTRANSFERASE 14 U/L (12-78); ALBUMIN 2.4 g/dL (3.4-5.0); ALKALINE PHOSPHATASE 102 U/L (45-117); ANION GAP 4 mmol/L (5-15); BILIRUBIN,TOTAL 0.5 mg/dL (0.2-1.0); CALCIUM 8.4 mg/dL (8.5-10.1); CREATININE 0.91 mg/dL (0.55-1.02); TOTAL PROTEIN 6.9 g/dL (6.4-8.2)
[2019-02-06 07:46] VITALS: BP 118/75
[2019-02-06] MEDS: ALBUTEROL/IPRATROPIUM 2.5MG/0.5MG, 3 ML NPPB SCH ×3 (09:00→20:09)
[2019-02-06] MEDS: DOXYCYCLINE 100 MG in DEXTROSE 5% 250 ML IV SCH ×2 (09:01→20:42)
[2019-02-06] MEDS: LISINOPRIL 5 MG TABLET PO SCH (09:02)
[2019-02-06] MEDS: SODIUM CHLORIDE FLUSH 10ML SYR IVF SCH ×2 (09:02→20:43)
[2019-02-06] MEDS: INSULIN LISPRO 100 UNITS/ML, PEN SQ-INSULIN SCH ×4 (09:02→20:42)
[2019-02-06] MEDS: LORazepam 1MG TABLET PO SCH ×3 (09:02→20:42)
[2019-02-06] MEDS: LAMOTRIGINE 200 MG TABLET PO SCH (09:02)
[2019-02-06] MEDS: NYSTATIN TOPICAL POWDER 15GM TP SCH ×3 (09:03→20:43)
[2019-02-06] MEDS: CEFTRIAXONE PMX 2GM/50ML 50 ML IV SCH (11:51)
[2019-02-06 13:00] VITALS: BP 132/70
[2019-02-06 19:51] VITALS: BP 110/66
[2019-02-06] MEDS: OLANZAPINE 10 MG TABLET PO SCH (20:42)
[2019-02-06] MEDS: DOXEPIN 25 MG CAPSULE PO SCH (20:43)
[2019-02-06] MEDS: ENOXAPARIN 40 MG/0.4 ML SQ SCH (22:30)
[2019-02-07 02:45] VITALS: BP 103/62
[2019-02-07 06:36] VITALS: BP 150/61
[2019-02-07] MEDS: INSULIN LISPRO 100 UNITS/ML, PEN SQ-INSULIN SCH ×2 (08:02→11:00)
[2019-02-07] MEDS: SODIUM CHLORIDE FLUSH 10ML SYR IVF SCH (08:03)
[2019-02-07] MEDS: DOXYCYCLINE 100 MG in DEXTROSE 5% 250 ML IV SCH (08:03)
[2019-02-07] MEDS: LAMOTRIGINE 200 MG TABLET PO SCH (08:03)
[2019-02-07] MEDS: LORazepam 1MG TABLET PO SCH (08:03)
[2019-02-07] MEDS: LISINOPRIL 5 MG TABLET PO SCH (08:04)
[2019-02-07] MEDS: NYSTATIN TOPICAL POWDER 15GM TP SCH (08:04)
[2019-02-07 08:58] LABS: ALANINE AMINOTRANSFERASE 15 U/L (12-78); ALBUMIN 2.6 g/dL (3.4-5.0); ANION GAP 6 mmol/L (5-15); CHLORIDE 104 mmol/L (98-107); CREATININE 1.11 mg/dL (0.55-1.02)
[2019-02-07] MEDS: ALBUTEROL/IPRATROPIUM 2.5MG/0.5MG, 3 ML NPPB SCH (09:00)
[2019-02-07 09:01] LABS: ALKALINE PHOSPHATASE 102 U/L (45-117); BILIRUBIN,TOTAL 0.3 mg/dL (0.2-1.0); TOTAL PROTEIN 7.2 g/dL (6.4-8.2)
[2019-02-07 09:17] LABS: BASOPHILS # (AUTO) 0.03 x10^3/uL (0-0.1); BASOPHILS % (AUTO) 0 % (0-1); EOSINOPHILS # (AUTO) 0.51 x10^3/uL (0-0.4); EOSINOPHILS % (AUTO) 6 % (1-7); LYMPHOCYTES # (AUTO) 1.16 x10^3/uL (1-3.4); LYMPHOCYTES % (AUTO) 15 % (22-44); MD NO; MEAN CORPUSCULAR HEMOGLOBIN 29.5 pg (27.0-34.8); MEAN CORPUSCULAR HGB CONC 31.6 g/dL (32.4-35.8); MEAN CORPUSCULAR VOLUME 93.5 fL (80-100); MEAN PLATELET VOLUME 7.2 fL (7.4-10.4); MONOCYTES # (AUTO) 0.76 x10^3/uL (0.2-0.8); MONOCYTES % (AUTO) 9 % (2-9); NEUTROPHILS # (AUTO) 5.58 x10^3/uL (1.8-6.8); NEUTROPHILS % (AUTO) 70 % (42-75); PLATELET COUNT 345 x10^3/uL (130-400); RED BLOOD COUNT 4.31 x10^6/uL (3.82-5.3); RED CELL DISTRIBUTION WIDTH 14.6 % (9.6-15.2)
[2019-02-07] MEDS: CEFTRIAXONE PMX 2GM/50ML 50 ML IV SCH (10:39)
[2019-02-07] MEDS ORDERED: DOXY100C2 PO (11:27)
[2019-02-07] MEDS ORDERED: CEFD300C37 PO (11:27)
[2019-02-07 14:13] VITALS: BP 136/70
== END 2019-02-07 17:03 | disposition home health service (06) | DRG 871 ==
LOC: ED 20:05 → EDIP 21:10 → 4EST 22:11 → DCLOUNGE 02-07 16:54
PROVIDERS: ADMIT Family Medicine; ATTEND Family Medicine
PROC: 0T9B70Z Drainage of Bladder with Drainage Device, Via Natural or Artificial Opening (ICD-10-PCS; principal; 2019-02-02)
DX: A41.9 Sepsis, unspecified organism (principal); J96.20 Acute and chronic respiratory failure, unspecified whether with hypoxia or hypercapnia; J18.9 Pneumonia, unspecified organism; Z68.43 Body mass index [BMI] 50.0-59.9, adult; L03.116 Cellulitis of left lower limb; J44.0 Chronic obstructive pulmonary disease with (acute) lower respiratory infection; I50.32 Chronic diastolic (congestive) heart failure; I25.10 Atherosclerotic heart disease of native coronary artery without angina pectoris; F31.9 Bipolar disorder, unspecified; M19.90 Unspecified osteoarthritis, unspecified site; E66.01 Morbid (severe) obesity due to excess calories; E11.9 Type 2 diabetes mellitus without complications; I11.0 Hypertensive heart disease with heart failure; E78.5 Hyperlipidemia, unspecified; Z88.0 Allergy status to penicillin; Z88.6 Allergy status to analgesic agent; Z88.1 Allergy status to other antibiotic agents; I25.2 Old myocardial infarction; Z90.49 Acquired absence of other specified parts of digestive tract; Z87.891 Personal history of nicotine dependence; Z99.81 Dependence on supplemental oxygen; Z95.5 Presence of coronary angioplasty implant and graft; I69.30 Unspecified sequelae of cerebral infarction; Z82.3 Family history of stroke; Z80.8 Family history of malignant neoplasm of other organs or systems; Z82.49 Family history of ischemic heart disease and other diseases of the circulatory system; Z79.84 Long term (current) use of oral hypoglycemic drugs; Z79.899 Other long term (current) drug therapy
CPT/HCPCS: 36415; 71045; 71275; 80048; 80053; 80061; 81001; 82962; 83036; 83605; 83735; 83880; 84100; 84145; 84443; 84484; 85025; 85610; 87040; 87086; 87400; 93005; 93306; 94640; 99285; G0378; J0696; J1650; J2405; J3370; J7060; J7620; Q9967; J1815; J2270; J7040

== ENCOUNTER 2019-02-15 12:42 | Inpatient (IN) | payer MEDICARE, MEDICAID ==
[~2019-02-15] VITALS: Ht 157.5 cm; Wt 125.2 kg
[~2019-02-15 12:42] MED LIST changes: +CEFD300C37 PO; +CLOT15CR5 TP; +DOXY100C2 PO; +NITR0.6T4 SL
--- NOTE | 2019-02-15 12:53 | NUR ---
PT RUBI LYONS FROM [facility]. PER EMS, PT WAS ADMITTED HERE LAST WEEK FOR CELLULITIS TO [facility]. PT WAS DISCHARGED WITH ABX BUT STATES IT'S NOT IMPROVING. VS PER EMS: 128/53, HR 70S, 94% ON 2L NC (BASELINE HOME O2), BS 200. HX DM, COPD. PT ARRIVES TO ED A&OX4, DENIES PAIN. MARKED SWELLING AND REDNESS TO L LOWER LEG AND L FOOT.
[2019-02-15] MEDS ORDERED: PHARMACOKINETIC CONSULTATION MC ONE ×2 (13:30→19:00)
[2019-02-15] MEDS ORDERED: VANCOMYCIN PER PHARMACY IV ONE (13:30)
[2019-02-15] MEDS ORDERED: SODIUM CHLORIDE FLUSH 10ML SYR IVF ONE (13:30)
[2019-02-15] MEDS ORDERED: VANCOMYCIN 2,200 MG in SODIUM CHLORIDE 0.9% 500 ML IV ONE (13:30)
[2019-02-15 13:31] LABS: BASOPHILS # (AUTO) 0.04 x10^3/uL (0-0.1); BASOPHILS % (AUTO) 0 % (0-1); EOSINOPHILS # (AUTO) 0.45 x10^3/uL (0-0.4); EOSINOPHILS % (AUTO) 4 % (1-7); LYMPHOCYTES # (AUTO) 1.78 x10^3/uL (1-3.4); LYMPHOCYTES % (AUTO) 18 % (22-44); MD NO; MEAN CORPUSCULAR HEMOGLOBIN 29.7 pg (27.0-34.8); MEAN CORPUSCULAR HGB CONC 31.7 g/dL (32.4-35.8); MEAN CORPUSCULAR VOLUME 93.5 fL (80-100); MEAN PLATELET VOLUME 7.4 fL (7.4-10.4); MONOCYTES # (AUTO) 0.61 x10^3/uL (0.2-0.8); MONOCYTES % (AUTO) 6 % (2-9); NEUTROPHILS # (AUTO) 7.31 x10^3/uL (1.8-6.8); NEUTROPHILS % (AUTO) 72 % (42-75); PLATELET COUNT 490 x10^3/uL (130-400); RED BLOOD COUNT 4.72 x10^6/uL (3.82-5.3); RED CELL DISTRIBUTION WIDTH 15.2 % (9.6-15.2)
[2019-02-15 13:40] LABS: INTERNATIONAL NORMALIZED RATIO 0.93 (0.93-1.1); PROTHROMBIN TIME 9.8 Seconds (9.6-11.5)
[2019-02-15 13:43] LABS: ALANINE AMINOTRANSFERASE 21 U/L (12-78); ALBUMIN 3.4 g/dL (3.4-5.0); ANION GAP 6 mmol/L (5-15); CALCIUM 9.1 mg/dL (8.5-10.1); CHLORIDE 105 mmol/L (98-107); CREATININE 1.23 mg/dL (0.55-1.02)
[2019-02-15 13:45] LABS: ALKALINE PHOSPHATASE 111 U/L (45-117); BILIRUBIN,TOTAL 0.2 mg/dL (0.2-1.0); TOTAL PROTEIN 8.3 g/dL (6.4-8.2)
[2019-02-15 15:00] LABS: CULTURE INDICATED? YES; MICROSCOPIC INDICATED
[2019-02-15] MEDS ORDERED: SODIUM CHLORIDE FLUSH 10ML SYR IVF PRN (16:00)
[2019-02-15] MEDS ORDERED: SODIUM CHLORIDE 0.9% 1,000 ML IV SCH (16:17)
[2019-02-15] MEDS ORDERED: POLYETHYLENE GLYCOL 17 GM PACKET PO PRN (16:30)
[2019-02-15] MEDS ORDERED: DOCUSATE 100 MG CAPSULE PO PRN (16:30)
[2019-02-15] MEDS ORDERED: VANCOMYCIN PER PHARMACY MC PRN (16:30)
[2019-02-15] MEDS ORDERED: ENOXAPARIN 40 MG/0.4 ML SQ SCH (16:30)
[2019-02-15] MEDS ORDERED: ALBUTEROL SULFATE 2.5 MG/3 ML NPPB PRN (16:30)
[2019-02-15] MEDS ORDERED: ONDANSETRON 2MG/ML, 2ML IVPush PRN (16:30)
[2019-02-15] MEDS ORDERED: BISACODYL 10 MG SUPP PR PRN (16:30)
--- NOTE | 2019-02-15 16:53 | NUR ---
ADMITTING MD WAS IN TO SEE PT. PT COMFORTABLE, UNDERSTANDS POC, SNACK PROVIDED.
[2019-02-15 18:00] VITALS: BP 133/78
[2019-02-15] MEDS ORDERED: PHARMACOKINETIC MONITORING MC PRN (19:00)
[2019-02-15 19:10] VITALS: BP 103/68
[2019-02-15] MEDS ORDERED: TEMPLATE NON-FORMULARY MED. (Ipratropium/Albuterol Sulfate (Combivent Respimat Inhal Spray INH SCH (21:00)
[2019-02-15] MEDS: OLANZAPINE 10 MG TABLET PO SCH (22:26)
[2019-02-15] MEDS: LORazepam 1MG TABLET PO SCH (22:27)
[2019-02-15] MEDS: HEPARIN 5,000 UNITS/ML, 1ML SQ SCH (22:27)
[2019-02-15] MEDS: CARVEDILOL 3.125 MG TABLET PO SCH (22:27)
[2019-02-15] MEDS: CEFTRIAXONE PMX 2GM/50ML 50 ML IV SCH (22:27)
[2019-02-15] MEDS: ATORVASTATIN 40 MG TABLET PO SCH (22:27)
[2019-02-15] MEDS: DOXEPIN 25 MG CAPSULE PO SCH (22:37)
[2019-02-16 01:08] VITALS: BP 98/63
[2019-02-16 06:40] VITALS: BP 102/64
[2019-02-16] MEDS: HEPARIN 5,000 UNITS/ML, 1ML SQ SCH ×3 (07:16→23:05)
[2019-02-16 08:07] LABS: ANION GAP 9 mmol/L (5-15); CALCIUM 8.3 mg/dL (8.5-10.1); CHLORIDE 109 mmol/L (98-107); CREATININE 1.03 mg/dL (0.55-1.02)
[2019-02-16] MEDS: LORazepam 1MG TABLET PO SCH ×3 (08:54→20:28)
[2019-02-16] MEDS: CARVEDILOL 3.125 MG TABLET PO SCH ×2 (08:54→20:29)
[2019-02-16] MEDS: LISINOPRIL 10 MG TABLET PO SCH (08:54)
[2019-02-16] MEDS: LAMOTRIGINE 200 MG TABLET PO SCH (08:55)
[2019-02-16] MEDS: CLOPIDOGREL 75 MG TABLET PO SCH (08:55)
[2019-02-16] MEDS ORDERED: TEMPLATE NON-FORMULARY MED. (Albuterol Sulfate (Ventolin Hfa) 2 PUFF) INH SCH (09:00)
[2019-02-16] MEDS ORDERED: IPRATROPIUM 0.5 MG/2.5 ML INHA NPPB SCH (09:00)
[2019-02-16 09:14] LABS: BASOPHILS # (AUTO) 0.02 x10^3/uL (0-0.1); BASOPHILS % (AUTO) 0 % (0-1); EOSINOPHILS # (AUTO) 0.36 x10^3/uL (0-0.4); EOSINOPHILS % (AUTO) 5 % (1-7); LYMPHOCYTES # (AUTO) 1.17 x10^3/uL (1-3.4); LYMPHOCYTES % (AUTO) 16 % (22-44); MD NO; MEAN CORPUSCULAR HGB CONC 31.5 g/dL (32.4-35.8); MEAN CORPUSCULAR VOLUME 92.1 fL (80-100); MEAN PLATELET VOLUME 7.4 fL (7.4-10.4); MONOCYTES # (AUTO) 0.45 x10^3/uL (0.2-0.8); MONOCYTES % (AUTO) 6 % (2-9); NEUTROPHILS # (AUTO) 5.43 x10^3/uL (1.8-6.8); NEUTROPHILS % (AUTO) 73 % (42-75); PLATELET COUNT 393 x10^3/uL (130-400); RED BLOOD COUNT 4.16 x10^6/uL (3.82-5.3); RED CELL DISTRIBUTION WIDTH 14.8 % (9.6-15.2)
[2019-02-16] MEDS: INSULIN LISPRO 100 UNITS/ML, PEN SQ-INSULIN SCH ×3 (11:00→20:35)
[2019-02-16] MEDS ORDERED: ALBUTEROL/IPRATROPIUM 2.5MG/0.5MG, 3 ML NPPB PRN (11:00)
[2019-02-16] MEDS: GLIMEPIRIDE 1 MG TABLET PO SCH (12:47)
[2019-02-16 13:09] VITALS: BP 94/63
[2019-02-16 14:49] VITALS: BP 116/76
[2019-02-16] MEDS: VANCOMYCIN 2,000 MG in SODIUM CHLORIDE 0.9% 500 ML IV SCH (16:21)
[2019-02-16] MEDS: ALBUTEROL/IPRATROPIUM 2.5MG/0.5MG, 3 ML NPPB SCH (19:41)
[2019-02-16 19:52] VITALS: BP 102/69
[2019-02-16] MEDS: DOXEPIN 25 MG CAPSULE PO SCH (20:28)
[2019-02-16] MEDS: OLANZAPINE 10 MG TABLET PO SCH (20:29)
[2019-02-16] MEDS: ATORVASTATIN 40 MG TABLET PO SCH (20:29)
[2019-02-16] MEDS: CEFTRIAXONE PMX 2GM/50ML 50 ML IV SCH (23:05)
[2019-02-17 02:00] VITALS: BP 105/68
[2019-02-17] MEDS: HEPARIN 5,000 UNITS/ML, 1ML SQ SCH ×2 (05:49→17:18)
[2019-02-17 07:34] VITALS: BP 107/71
[2019-02-17] MEDS: LAMOTRIGINE 200 MG TABLET PO SCH (07:35)
[2019-02-17] MEDS: GLIMEPIRIDE 1 MG TABLET PO SCH (07:35)
[2019-02-17] MEDS: CARVEDILOL 3.125 MG TABLET PO SCH ×2 (07:35→20:25)
[2019-02-17] MEDS: LISINOPRIL 10 MG TABLET PO SCH (07:35)
[2019-02-17] MEDS: CLOPIDOGREL 75 MG TABLET PO SCH (07:35)
[2019-02-17] MEDS: LORazepam 1MG TABLET PO SCH ×3 (07:35→20:25)
[2019-02-17] MEDS: INSULIN LISPRO 100 UNITS/ML, PEN SQ-INSULIN SCH ×4 (07:38→20:34)
[2019-02-17 08:18] VITALS: BP 95/91
[2019-02-17] MEDS: ALBUTEROL/IPRATROPIUM 2.5MG/0.5MG, 3 ML NPPB SCH ×2 (10:02→19:21)
[2019-02-17 13:11] VITALS: BP 95/91
[2019-02-17 13:21] VITALS: BP 103/67
[2019-02-17] MEDS: VANCOMYCIN 2,000 MG in SODIUM CHLORIDE 0.9% 500 ML IV SCH (17:18)
[2019-02-17 18:40] VITALS: BP 108/69
[2019-02-17] MEDS: ATORVASTATIN 40 MG TABLET PO SCH (20:24)
[2019-02-17] MEDS: OLANZAPINE 10 MG TABLET PO SCH (20:25)
[2019-02-17] MEDS: DOXEPIN 25 MG CAPSULE PO SCH (20:25)
[2019-02-17] MEDS: ACETAMINOPHEN 325 MG TABLET PO PRN (20:25)
[2019-02-17] MEDS: CEFTRIAXONE PMX 2GM/50ML 50 ML IV SCH (22:14)
[2019-02-18 00:24] VITALS: BP 106/56
[2019-02-18] MEDS: HEPARIN 5,000 UNITS/ML, 1ML SQ SCH ×3 (00:34→17:30)
[2019-02-18 06:41] VITALS: BP 119/73
[2019-02-18] MEDS: LORazepam 1MG TABLET PO SCH ×3 (07:44→21:28)
[2019-02-18] MEDS: LAMOTRIGINE 200 MG TABLET PO SCH (07:44)
[2019-02-18] MEDS: GLIMEPIRIDE 1 MG TABLET PO SCH (07:44)
[2019-02-18] MEDS: CLOPIDOGREL 75 MG TABLET PO SCH (07:44)
[2019-02-18] MEDS: INSULIN LISPRO 100 UNITS/ML, PEN SQ-INSULIN SCH ×4 (07:45→21:34)
[2019-02-18] MEDS: CARVEDILOL 3.125 MG TABLET PO SCH ×2 (07:45→21:27)
[2019-02-18] MEDS: LISINOPRIL 10 MG TABLET PO SCH (07:45)
[2019-02-18] MEDS: ALBUTEROL/IPRATROPIUM 2.5MG/0.5MG, 3 ML NPPB SCH ×2 (08:37→19:45)
[2019-02-18] MEDS ORDERED: FLUCONAZOLE 400 MG/200 ML 200 ML IV ONE (09:00)
[2019-02-18] MEDS ORDERED: SODIUM CHLORIDE 0.9%, 500ML IVBOLUS ONE (12:30)
[2019-02-18 12:39] VITALS: BP 115/79
[2019-02-18] MEDS: VANCOMYCIN 2,000 MG in SODIUM CHLORIDE 0.9% 500 ML IV SCH (15:19)
[2019-02-18] MEDS: ACETAMINOPHEN 325 MG TABLET PO PRN ×2 (16:13→21:27)
[2019-02-18 19:26] VITALS: BP 108/67
[2019-02-18] MEDS: OLANZAPINE 10 MG TABLET PO SCH (21:27)
[2019-02-18] MEDS: DOXEPIN 25 MG CAPSULE PO SCH (21:27)
[2019-02-18] MEDS: ATORVASTATIN 40 MG TABLET PO SCH (21:28)
[2019-02-18] MEDS: CEFTRIAXONE PMX 2GM/50ML 50 ML IV SCH (21:40)
[2019-02-19] MEDS: HEPARIN 5,000 UNITS/ML, 1ML SQ SCH ×2 (00:36→08:46)
[2019-02-19 03:06] VITALS: BP 113/70
[2019-02-19 06:42] VITALS: BP 103/68
[2019-02-19] MEDS: ALBUTEROL/IPRATROPIUM 2.5MG/0.5MG, 3 ML NPPB SCH (07:19)
[2019-02-19] MEDS ORDERED: GLIMEPIRIDE 1 MG TABLET PO SCH (07:30)
[2019-02-19] MEDS: INSULIN LISPRO 100 UNITS/ML, PEN SQ-INSULIN SCH ×2 (07:30→11:27)
[2019-02-19 08:44] VITALS: BP 104/67
[2019-02-19] MEDS: LISINOPRIL 10 MG TABLET PO SCH (08:44)
[2019-02-19] MEDS: CLOPIDOGREL 75 MG TABLET PO SCH (08:45)
[2019-02-19] MEDS: LORazepam 1MG TABLET PO SCH (08:45)
[2019-02-19] MEDS: LAMOTRIGINE 200 MG TABLET PO SCH (08:45)
[2019-02-19] MEDS: CARVEDILOL 3.125 MG TABLET PO SCH (08:46)
[2019-02-19 12:27] VITALS: BP 150/83
[2019-02-19 12:38] VITALS: BP 121/74
[2019-02-19] MEDS ORDERED: SULF-169 PO (13:48)
[2019-02-19] MEDS ORDERED: GLIM1TAB2 PO (13:48)
[2019-02-19] MEDS ORDERED: CEFD300C37 PO (13:48)
[2019-02-19] MEDS ORDERED: LACT1TAB13 PO (13:50)
[2019-02-19] MEDS ORDERED: SULFAMETH./TRIMETHOPRIM DS 800MG/160MG TABLET PO SCH (14:00)
[2019-02-19] MEDS: VANCOMYCIN 2,000 MG in SODIUM CHLORIDE 0.9% 500 ML IV SCH (15:02)
== END 2019-02-19 17:36 | disposition home or self-care (01) | DRG 602 ==
LOC: ED 15:52 → EDIP 15:53 → ED 15:58 → 3NW 17:33
PROVIDERS: ADMIT Internal Medicine; ATTEND Internal Medicine
DX: L03.116 Cellulitis of left lower limb (principal); N17.0 Acute kidney failure with tubular necrosis; D68.69 Other thrombophilia; E44.0 Moderate protein-calorie malnutrition; Z68.43 Body mass index [BMI] 50.0-59.9, adult; M19.90 Unspecified osteoarthritis, unspecified site; E11.9 Type 2 diabetes mellitus without complications; E66.01 Morbid (severe) obesity due to excess calories; E78.5 Hyperlipidemia, unspecified; L40.9 Psoriasis, unspecified; F31.9 Bipolar disorder, unspecified; F41.1 Generalized anxiety disorder; I10 Essential (primary) hypertension; I25.10 Atherosclerotic heart disease of native coronary artery without angina pectoris; I87.2 Venous insufficiency (chronic) (peripheral); J44.9 Chronic obstructive pulmonary disease, unspecified; Z86.73 Personal history of transient ischemic attack (TIA), and cerebral infarction without residual deficits; Z88.1 Allergy status to other antibiotic agents; I25.2 Old myocardial infarction
CPT/HCPCS: 36415; 80048; 80053; 80202; 81001; 82947; 82962; 83605; 85025; 85610; 85730; 87040; 87086; 87106; 94640; 99285; G0378; J0696; J1450; J1644; J3370; J7620; J7644; J1815; J7030; J7040